=== PATIENT | male | born 2000 | race Two or more races ===

== ENCOUNTER 2019-03-10 20:45 | Emergency (ER) | payer SELFPAY ==
--- NOTE | 2019-03-10 20:50 | PDOC ---
Rapid Medical Evaluation Time Seen by Provider: 03/10/19 20:49 Medical Evaluation: 03/10/19 20:49 I have performed a brief in-person evaluation of this patient. The patient presents with a chief complaint of: abd pain, vomiting Pertinent physical exam findings:stable and in NAD, non-focal I have ordered the following:labs The patient will proceed to the ED for further evaluation.
[2019-03-10] MEDS ORDERED: SODIUM CHLORIDE 1,000 ML IV STA ×2 (20:53→22:48)
[2019-03-10 20:55] VITALS: BP 154/70; PULSE 91; TEMP 97.5
[2019-03-10 20:56] VITALS: BMI 63.8
[2019-03-10] MEDS ORDERED: ONDANSETRON 4 MG/2 ML VIAL IVPUSH ONE (21:40)
[2019-03-10 22:01] LABS: BASO % 0.4 % (0-2.0); EOS % 0.1 % (0-4.5); HEMATOCRIT 47.4 % (35.4-49); HEMOGLOBIN 15.6 GM/dL (11.7-16.9); MCH 28.9 pg (25.7-33.7); MEAN CELL VOLUME 87.8 fl (80-96); MEAN PLT VOLUME 6.5 fl (7.5-11.1); MONO % 8.5 % (3.8-10.2); PLATELET COUNT 276 K/MM3 (134-434); RDW 12.7 % (11.9-15.9); WHITE BLOOD COUNT 6.4 K/mm3 (4.0-10.0)
--- NOTE | 2019-03-10 22:19 | PDOC ---
Attending Attestation - Resident Resident Name: Filippo Delaney - ED Attending Attestation I have performed the following: I have examined & evaluated the patient, The case was reviewed & discussed with the resident, I agree w/resident's findings & plan - HPI HPI: 03/10/19 22:56 see resident hpi - Physicial Exam PE: 03/10/19 22:56 agree with resident exam - Medical Decision Making 03/10/19 22:56 18-year-old male with abdominal pain vomiting and diarrhea Unrelated to reason for visit patient accidentally took 3 tablets of sertraline Patient states abdominal symptoms began after eating pizza On reevaluation at 1045 patient is feeling much better Plan for IV hydration, antiemetics and likely DC home if tolerating p.o. Abdominal exam at this time is totally benign with no complaints of pain and no tenderness on exam
[2019-03-10 22:30] LABS: COCAINE, UR NEGATIVE ng/ml (CUTOFF=300); METHADONE, UR NEGATIVE ng/ml (CUTOFF=300); OPIATES, URI NEGATIVE ng/ml (CUTOFF=300); PHENCYCLIDINE,URINE NEGATIVE ng/ml (CUTOFF=25); URINE AMPHETAMINES NEGATIVE ng/ml (CUTOFF=500); URINE BARBITURATES NEGATIVE ng/ml (CUTOFF=200); URINE BENZODIAZEPINES NEGATIVE ng/ml (CUTOFF=200)
[2019-03-10] MEDS ORDERED: ONDANSETRON *ODT* 4 MG TABLET SL ONE (22:33)
[2019-03-10 22:34] LABS: ALBUMIN 4.6 g/dl (3.4-5.0); BILIRUBIN,TOTAL 0.8 mg/dL (0.2-1); CALCIUM 9.9 mg/dL (8.5-10.1); CREATININE 1.1 mg/dL (0.55-1.3)
[2019-03-10 22:35] LABS: BLOOD UREA NITROGEN 12.1 mg/dL (7-18); POTASSIUM 4.1 mmol/L (3.5-5.1)
--- NOTE | 2019-03-10 22:39 | PDOC ---
History of Present Illness - General Chief Complaint: Pain Stated Complaint: SICK Time Seen by Provider: 03/10/19 20:49 - History of Present Illness Initial Comments: 03/10/19 22:33 18 yo M with no significant pmh with diffuse lower and mid abdominal pain, nausea with vomiting x 2 episodes of NBNB emesis. Patient reports 1 day of gradual, crampy, lower abdominal pain, with absent radiation, beginning at 5:00 PM following PO intake of food. Reports one day of loose stools, with absent BPR. Two episodes of NBNB emesis and continued nausea. Pain not aggravated with PO intake. Patient states that he attempted to take "pain medication for ab pain, " and unintentionally took 3 of his mothers Sertraline pills (6:00 PM) 03/10/19. Denies SI, HI, homicidal ideations. Denies h/o prior ingestion. Reports 1 day of dry non productive cough, with mild back pain, aggravated with coughing. Endorses diffuse mild, dull headache, with absent photo/phonophobia and neck pain/stiffness. Endorses recreational marijuana use, and Etoh use today. Patient denies vision change, palpitations, wheezing, orthopena, PND, leg swelling/pain, F,C, CP, SOB, urinary complaints, hematuria, BPR, constipation, lightheadedness, weakness, sensory changes. PMHx: as noted above ROS: as noted SHx: Denies IVDA, tobacco use Allergies: NKDA Past History - Past Medical History Allergies/Adverse Reactions: Allergies Allergy/AdvReac Type Severity Reaction Status Date / Time No Known Allergies Allergy Verified 03/10/19 20:50 COPD: No - Psycho Social/Smoking Cessation Hx Smoking History: Never smoked Review of Systems - Review of Systems Comments:: 03/10/19 22:51 GENERAL/CONSTITUTIONAL: No fever or chills. No weakness. HEAD, EYES, EARS, NOSE AND THROAT: No change in vision. No ear pain or discharge. No sore throat. CARDIOVASCULAR: No chest pain or shortness of breath RESPIRATORY: No cough, wheezing, or hemoptysis. GASTROINTESTINAL: + abdominal pain, nausea, vomiting, diarrhea. No constipation. GENITOURINARY: No dysuria, frequency, or change in urination. MUSCULOSKELETAL: No joint or muscle swelling or pain. No neck or back pain. SKIN: No rash NEUROLOGIC: + headache. No vertigo, loss of consciousness, or change in strength /sensation. ENDOCRINE: No increased thirst. No abnormal weight change HEMATOLOGIC/LYMPHATIC: No anemia, easy bleeding, or history of blood clots. ALLERGIC/IMMUNOLOGIC: No hives or skin allergy. *Physical Exam - Vital Signs Last Vital Signs Temp Pulse Resp BP Pulse Ox 97.5 F L 91 H 18 154/70 97 03/10/19 20:50 03/10/19 20:50 03/10/19 20:50 03/10/19 20:50 03/10/19 20:50 - Physical Exam Comments: 03/10/19 22:52 GENERAL: Awake, alert, and fully oriented, in no acute distress HEAD: No signs of trauma, normocephalic, atraumatic EYES: PERRLA, EOMI, sclera anicteric, conjunctiva clear ENT: Dry mucous membranes. Auricles normal inspection, hearing grossly normal, nares patent, oropharynx clear without exudates. NECK: Normal ROM, supple, no lymphadenopathy, JVD, or masses. LUNGS: No distress, speaks full sentences, clear to auscultation bilaterally HEART: Regular rate and rhythm, normal S1 and S2, no murmurs, rubs or gallops, peripheral pulses normal and equal bilaterally. ABDOMEN: Soft, nontender, normoactive bowel sounds. No guarding, no rebound. No masses. Neg CVA ttp. EXTREMITIES : Normal inspection, Normal range of motion, no edema. No clubbing or cyanosis NEUROLOGICAL: Cranial nerves II through XII grossly intact. Normal speech, normal gait, no focal sensorimotor deficits SKIN: Warm, Dry, normal turgor, no rashes or lesions noted ED Treatment Course - LABORATORY CBC & Chemistry Diagram: 03/10/19 21:47 03/10/19 21:47 - ADDITIONAL ORDERS Additional order review: Laboratory Results 03/10/19 03/10/19 21:47 21:47 Opiates Screen Negative Methadone Screen Negative Acetaminophen 68.8 Barbiturate Screen Negative Phencyclidine Screen Negative Ur Amphetamines Screen Negative MDMA (Ecstasy) Screen Negative Benzodiazepines Screen Negative Cocaine Screen Negative 03/10/19 21:47 RBC 5.40 MCV 87.8 MCHC 33.0 RDW 12.7 MPV 6.5 L Neutrophils % 71.0 Lymphocytes % 20.0 Monocytes % 8.5 Eosinophils % 0.1 Basophils % 0.4 Medical Decision Making - Medical Decision Making 03/10/19 22:42 18 yo M with no significant pmh with diffuse lower and mid abdominal pain, nausea with vomiting x 2 episodes of NBNB emesis. Vitals wnl, AF, A&Ox4. Physical exam unremarkable. Likely viral gastroenteritis. Will consider colitis , biliary dz., cysitis, nephrolithaisis. Patient also endorses unintentional use of Sertraline x 3 pills (unknown dosage) in attempt at analgesia at 6:00 PM. Denies co-ingestion, SI, HI, prior ingestion. Will assess for electorate abnml, metabolic and toxic derangements, acid-base disturbances, infection. Ed Course: Zofran 4 mg Will observe patient in ED. Patient tolerating PO intake. EKG: NSR with absent JAYLENE, STD. Nml interval duration and axis. Nml R wave progression. Absent Q waves. Poison control contacted 03/10/19 22:56 Per poison control, recommends observation in ED for continued symptoms, and dispo home if tolerate PO 03/10/19 22:58 03/11/19 00:22 Patient eloped from hospital before complete med eval. Discharge - Discharge Information Problems reviewed: Yes Clinical Impression/Diagnosis: Diffuse abdominal pain Condition: Stable Disposition: ELOPED - Admission No - Follow up/Referral Referrals: Homer Quintana MD [Primary Care Provider] - - Patient Discharge Instructions Patient Printed Discharge Instructions: DI for Abdominal Pain-Adult Additional Instructions: Please return to the emergency department with any new or worsening symptoms or concerns. Please follow up with your primary care physician within 72 hours. - Post Discharge Activity
[2019-03-10] MEDS ORDERED: ONDANSETRON *ODT* 4 MG TABLET ONE (22:48)
[2019-03-10 23:45] LABS: URINE APPEARANCE CLOUDY; URINE BILIRUBIN NEGATIVE (NEGATIVE); URINE COLOR YELLOW; URINE GLUCOSE (UA) NEGATIVE (NEGATIVE); URINE KETONE 15 mg/dl (NEGATIVE)
[2019-03-10 23:46] LABS: URINE LEUK ESTERASE NEGATIVE (NEGATIVE); URINE NITRITE NEGATIVE (NEGATIVE); URINE PROTEIN 30 (NEGATIVE)
[2019-03-10 23:47] LABS: EPI CELLS 38.4 /HPF (0-5/HPF); HYALINE CASTS 37.76 /lpf (0-8); URINE RBC 6.2 /hpf (0-4); URINE WBC 12.3 /hpf (0-5)
--- NOTE | 2019-03-11 10:33 | EKG ---
Test Reason : Blood Pressure : / mmHG Vent. Rate : 092 BPM Atrial Rate : 092 BPM P-R Int : 160 ms QRS Dur : 084 ms QT Int : 348 ms P-R-T Axes : 067 050 041 degrees QTc Int : 430 ms NORMAL SINUS RHYTHM WITH SINUS ARRHYTHMIA POSSIBLE LEFT ATRIAL ENLARGEMENT BORDERLINE ECG NO PREVIOUS ECGS AVAILABLE Confirmed by TIFFANIE ROCA, CLAU ([id number]) on 03/11/2019 10:32:57 AM Referred By: Confirmed By:CLAU MORENO MD
== END 2019-03-10 23:49 | disposition left against medical advice (07) ==
LOC: JER 20:45
DX: R10.84 Generalized abdominal pain (principal)
CPT/HCPCS: 36415; 71046-TC-FY; 80053; 80307; 81003; 85025; 93005; 93010; 99284-25; Q0162